=== PATIENT | female | born 1940 | race Caucasian/White ===

== ENCOUNTER 2018-08-11 23:37 | Outpatient (REF) | payer MEDICARE, MEDICAID, SELFPAY ==
[2018-08-12 04:07] LABS: ALT 20 U/L (12-78); AST 14 U/L (15-37); Albumin 3.6 g/dL (3.4-5.0); Alkaline Phosphatase 103 U/L (46-116); Anion Gap 14.6 mmol/L (3-11); BUN 10 mg/dL (7-18); Bilirubin, Total 0.2 mg/dL (0.2-1.0); CO2 23.4 mmol/L (21.0-32.0); CREATININE 0.98 mg/dL (0.55-1.02); Calcium 8.8 mg/dL (8.5-10.1); Chloride 97 mmol/L (98-107); Estimated GFR 55.03 (mL/min/1.73m2); Glucose 133 mg/dL (70-100); Potassium 4.3 mmol/L (3.5-5.1); Sodium 135 mmol/L (136-145); Total Protein 6.7 g/dL (6.4-8.2)
[2018-08-12 04:12] LABS: Abs Immature Grans 0.04 k/cumm (0.0-0.09); Absolute Basophil Count 0.03 k/cumm (0.0-0.2); Absolute Eosinophil Count 0.29 k/cumm (0.0-0.7); Absolute Monocyte Count 1.38 k/cumm (0.11-0.7); Basophils % 0.2; HCT 41.3 % (36.0-46.0); HGB 13.6 g/dL (12.0-15.5); Immature Grans % 0.3; Lymphocytes % 18.8; Mean Corp. HGB Concentration 32.9 g/dL (32.0-36.0); Mean Corpuscular Hemoglobin 30.6 pg (27.0-33.0); Mean Corpuscular Volume 92.8 fL (80-95); Mean Platelet Volume 9.7 fL (8.0-11.0); Monocytes % 9.6; Neutrophils % 69.1; Platelet Count 393 x1000/uL (130-400); RBC 4.45 m/cumm (4.00-5.20); RBC Distribution Width 13.2 % (11.7-14.6); White Blood Cell Count 14.39 k/cumm (4.4-10.8)
[2018-08-12 04:14] LABS: Absolute Lymphocyte Count 2.71 k/cumm (1.2-3.4); Absolute Neutrophil Count 9.94 k/cumm (1.2-6.7)
[2018-08-13 09:27] LABS: Lipase 146 U/L (73-393)
== END 2018-08-11 23:57 ==
LOC: LBN 23:37
PROVIDERS: PCP Family Medicine; Visit Provider Family Medicine
DX: L70.9 Acne, unspecified (principal); Z79.82 Long term (current) use of aspirin; R68.89 Other general symptoms and signs; F41.1 Generalized anxiety disorder; R52 Pain, unspecified
CPT/HCPCS: 80053; 83690; 85025

== ENCOUNTER 2018-08-13 20:42 | Outpatient (REF) | payer MEDICARE, MEDICAID, SELFPAY ==
[2018-08-13 22:13] LABS: Bilirubin Negative (Negative); Blood Trace-lysed (Negative); Clarity Clear; Glucose Negative (Negative); Ketones Negative (Negative); Leukocyte Esterase Trace (Negative); Nitrite Negative (Negative); Urobilinogen 0.2 EU/dL (Up TO 0.2)
[2018-08-13 22:28] LABS: Bacteria Rare HPF (Negative); C & S Indicated? Yes; Casts Negative LPF (Negative); Crystals Negative HPF (Negative); Epithelial Cells Rare HPF (Negative); Mucus Negative (Negative); Other Cells Rare Renal (Negative); WBC 0-2 HPF (0-5)
== END 2018-08-13 21:02 ==
LOC: LBN 20:42
PROVIDERS: PCP Family Medicine; Visit Provider Family Medicine
DX: M54.9 Dorsalgia, unspecified (principal); R82.90 Unspecified abnormal findings in urine
CPT/HCPCS: 81003; 81015; 87086

== ENCOUNTER 2019-01-03 18:01 | Outpatient (REF) | payer MEDICARE, MEDICAID, SELFPAY ==
[2019-01-03 19:29] LABS: Anion Gap 9.9 mmol/L (3-11); BUN 8 mg/dL (7-18); CO2 26.1 mmol/L (21.0-32.0); Calcium 9.1 mg/dL (8.5-10.1); Chloride 98 mmol/L (98-107); Glucose 95 mg/dL (70-100); Potassium 4.1 mmol/L (3.5-5.1); Sodium 134 mmol/L (136-145)
== END 2019-01-03 18:21 ==
LOC: LBN 18:01
PROVIDERS: PCP Family Medicine; Visit Provider Family Medicine
DX: M62.81 Muscle weakness (generalized) (principal)
CPT/HCPCS: 80048

== ENCOUNTER 2020-08-27 12:30 | Outpatient (REF) | payer MEDICARE, MEDICAID, SELFPAY ==
[2020-08-27 18:45] LABS: Abs Immature Grans 0.03 10^3/uL (0.0-0.06); Absolute Basophil Count 0.05 10^3/uL (0.0-0.2); Absolute Eosinophil Count 0.42 10^3/uL (0.0-0.7); Absolute Lymphocyte Count 2.75 10^3/uL (1.2-3.4); Absolute Monocyte Count 1.16 10^3/uL (0.1-0.8); Absolute Neutrophil Count 5.14 10^3/uL (1.2-6.7); Basophils % 0.5; Eosinophils % 4.4; HGB 11.5 g/dL (11.2-15.7); Immature Grans % 0.3; Lymphocytes % 28.8; MCH 31.3 pg (27.0-33.0); MCHC 33.8 % (32.0-36.0); MCV 92.6 fL (80-95); MPV 9.5 fL (8.0-11.0); Monocytes % 12.1; Neutrophils % 53.9; Nucleated RBC 0 %; Platelet Count 392 10^3/uL (130-400); RBC 3.67 10^6/uL (3.93-5.22); RDW 11.7 % (11.7-14.6); RDW-SD 39.4 fL; WBC 9.55 10^3/uL (4.4-10.8)
[2020-08-27 19:09] LABS: ALT 22 U/L (14-59); AST 19 U/L (15-37); Albumin 3.6 g/dL (3.4-5.0); Alkaline Phosphatase 93 U/L (46-116); Anion Gap 9.2 mmol/L (3-11); BUN 12 mg/dL (7-18); Bilirubin, Total 0.3 mg/dL (0.2-1.0); CO2 23.8 mmol/L (21.0-32.0); CREATININE 0.89 mg/dL (0.55-1.02); Calcium 8.9 mg/dL (8.5-10.1); Chloride 98 mmol/L (98-107); Glucose 104 mg/dL (74-106); Potassium 4.1 mmol/L (3.5-5.1); Sodium 131 mmol/L (136-145); TSH (W/Ref FT4) 1.47 uIU/mL (0.36-3.74); Total Protein 6.3 g/dL (6.4-8.2)
[2020-08-28 20:32] LABS: Bilirubin Negative (Negative); Blood Trace-lysed (Negative); Clarity Clear (Clear); Glucose Negative (Negative); Ketones Negative (Negative); Leukocyte Esterase Large (Negative); Nitrite Negative (Negative); Specific Gravity 1.015 (1.005-1.025); Urobilinogen 0.2 EU/dL (Up TO 0.2)
[2020-08-28 20:48] LABS: Bacteria Few HPF (Negative); C & S Indicated? Yes; Casts Negative LPF (Negative); Crystals Negative HPF (Negative); Epithelial Cells Few HPF (Negative); Mucus Negative (Negative); RBC Negative HPF (0-2)
== END 2020-08-27 12:50 ==
LOC: LBN 12:30
PROVIDERS: PCP Family Medicine; Visit Provider Family Medicine
DX: R68.89 Other general symptoms and signs (principal)
CPT/HCPCS: 80053; 87077; 81003; 81015; 84443; 85025; 87086; 87186

== ENCOUNTER 2022-02-13 15:13 | Outpatient (REF) | payer MEDICARE, MEDICAID, SELFPAY ==
[2022-02-13 15:57] LABS: Abs Immature Grans 0.03 10^3/uL (0.0-0.06); Absolute Basophil Count 0.07 10^3/uL (0.0-0.2); Absolute Eosinophil Count 0.33 10^3/uL (0.0-0.7); Absolute Lymphocyte Count 2.53 10^3/uL (1.2-3.4); Absolute Monocyte Count 1.13 10^3/uL (0.1-0.8); Absolute Neutrophil Count 4.06 10^3/uL (1.2-6.7); Basophils % 0.9; HCT 39.2 % (36.0-46.0); HGB 13.1 g/dL (11.2-15.7); Immature Grans % 0.4; MCH 31.1 pg (27.0-33.0); MCHC 33.4 % (32.0-36.0); MCV 93 fL (80-95); MPV 9.3 fL (8.0-11.0); Monocytes % 13.9; Neutrophils % 49.8; Platelet Count 412 10^3/uL (130-400); RBC 4.21 10^6/uL (3.93-5.22); RDW 11.9 % (11.7-14.6); RDW-SD 40.6 fL; WBC 8.15 10^3/uL (4.4-10.8)
[2022-02-13 16:18] LABS: ALT 26 U/L (14-59); AST 19 U/L (15-37); Albumin 3.7 g/dL (3.4-5.0); Alkaline Phosphatase 80 U/L (46-116); Anion Gap 8.4 mmol/L (3-11); BUN 16 mg/dL (7-18); Bilirubin, Total 0.3 mg/dL (0.2-1.0); CO2 26.6 mmol/L (21.0-32.0); CREATININE 0.7 mg/dL (0.55-1.02); Calcium 8.6 mg/dL (8.5-10.1); Calculated LDL 52 mg/dL (<100); Chloride 101 mmol/L (98-107); Cholesterol 131 mg/dL (<200); Glucose 93 mg/dL (74-106); HDL Cholesterol 51 mg/dL (40-60); Potassium 4.9 mmol/L (3.5-5.1); Sodium 136 mmol/L (136-145); Total Protein 6.7 g/dL (6.4-8.2); Triglyceride 144 mg/dL (<150)
== END 2022-02-13 15:14 | disposition home or self-care (01) ==
LOC: LBN 15:13
PROVIDERS: PCP Family Medicine; Visit Provider Family Medicine
DX: I11.9 Hypertensive heart disease without heart failure (principal); F33.9 Major depressive disorder, recurrent, unspecified
CPT/HCPCS: 80053; 80061; 85025